=== PATIENT | female | born 1995 | race Caucasian/White ===

== ENCOUNTER 2020-06-10 21:23 | Emergency (ER) | payer MEDICAID, OTHER ==
[~2020-06-10] VITALS: Ht 172.7 cm; Wt 90.0 kg
[2020-06-10 21:35] VITALS: BP 132/92
--- NOTE | 2020-06-10 21:38 | NUR ---
PATIENT ALEX CASTRO IN [facility] CUSTODY. PATIENT WAS SENT TO [facility] THIS EVENING ON BATTERY CHARGES PER [facility], PATIENT WAS "IN AND OUT OF CONSCIOUSNESS" AND MEDICAL STAFF THERE DID NOT FEEL COMFORTABLE WITH KEEPING PATIENT UNTIL SHE WAS MEDICALLY CLEARED. PATIENT YELLING, AND NON-COOPERATIVE PER EMS EN ROUTE. VITALS STABLE EN ROUTE. PATIENT ADMITS TO DRINKING UNKNOWN AMOUNT TODAY, DENIES DRUG USE. PATIENT DENIES ANY TRAUMA. PATIENT PLACED IN RESTRAINTS UPON ARRIVAL, CONNECTED TO VITALS MACHINE.
--- NOTE | 2020-06-10 21:50 | NUR ---
LATE ENTRY DUE TO PATIENT CARE: PATIENT MEDICALLY CLEARED. LEFT IN CUSTODY WITH [facility] TO BE TAKEN TO [facility].
== END 2020-06-10 21:54 | disposition home or self-care (01) ==
LOC: ED 21:30
DX: F10.120 Alcohol abuse with intoxication, uncomplicated (principal); F17.210 Nicotine dependence, cigarettes, uncomplicated; Y90.9 Presence of alcohol in blood, level not specified
CPT/HCPCS: 99283; 99406